=== PATIENT | male | born 1980 | race Caucasian/White ===

== ENCOUNTER 2020-04-28 21:46 | Emergency (ER) | payer SELFPAY ==
[~2020-04-28] VITALS: Ht 175.3 cm; Wt 88.0 kg
[2020-04-28 22:09] VITALS: Ht 175.3 cm; Wt 88.0 kg
[2020-04-28 22:52] VITALS: BP 148/88
== END 2020-04-28 22:52 | disposition home or self-care (01) ==
LOC: ED 21:46
DX: S43.101A Unspecified dislocation of right acromioclavicular joint, initial encounter (principal); S43.401A Unspecified sprain of right shoulder joint, initial encounter; W18.30XA Fall on same level, unspecified, initial encounter; Y93.89 Activity, other specified; Y92.89 Other specified places as the place of occurrence of the external cause; Y99.8 Other external cause status
CPT/HCPCS: J1885; Q0092